=== PATIENT | female | born 1995 ===

== ENCOUNTER → 2018-09-15 | Outpatient (CLI) | payer OTHER ==
[~2018-09-15] MED LIST: OMEP-125 PO
--- NOTE | 2018-09-15 12:54 | RADIOLOGY IMAGING REPORT ---
[place] [facility] [place] NAME: Joy Eng : 1995 MR: [id number] V: [id number] EXAM DATE: ORDERING PHYSICIAN: CESILIA FELIX TECHNOLOGIST: [facility] Patient: Joy Eng : 1995 Visit/Account:[id number] Date of Sevice: 09/15/2018 Pelvic ultrasound HISTORY: Pelvic pain. Intrauterine device. COMPARISON: None available. Findings: Standard endovaginal pelvic ultrasound with color flow and spectral analysis. Uterus: Uterus measurement: 7.1 x 5.0 x 2.4 cm Endometrium measurement: 4 mm Appropriately positioned intrauterine device. No suspicious mass. Adnexa: Right ovary: 4.3 x 3.3 x 2.3 cm Left ovary: 4.5 x 3.9 x 2.7 cm No suspicious ovarian or adnexal mass. Normal arterial and venous flow is documented within each ova ry on Doppler evaluation. Free fluid: None Urinary bladder: Empty IMPRESSION: 1. Appropriately positioned intrauterine device. 2. Otherwise normal pelvic ultrasound. Report Dictated By: Tiago Manriquez MD at 09/15/2018 12:48 PM Report E-Signed By: Tiago Manriquez MD at 09/15/2018 12:49 PM WSN:[id number]
== END ==
LOC: US 11:10
PROVIDERS: ATTEND Obstetrics & Gynecology
DX: Z02.9 Encounter for administrative examinations, unspecified (principal)